=== PATIENT | female | born 1975 | race Caucasian/White ===

== ENCOUNTER 2021-08-18 14:15 | Inpatient (IN) ==
[2021-08-18 15:50] LABS: INR 0.9; PT Patient Result 10.3 SECS (10.5-12.0); Partial Thromboplastin Time 25.2 SECS (23.8-32.1)
[2021-08-18 16:04] LABS: Barbiturates Screen,Urine Negative (Negative); Benzodiazepines Screen,Urine Negative (Negative); Cannabinoid Screen,Urine Positive (Negative); Opiate Screen,Urine Negative (Negative); Phencyclidine Screen,Urine Negative (Negative)
[2021-08-18 16:06] LABS: Alanine Aminotransferase 23 U/L (13-56); Albumin 3.6 G/DL (3.4-5.0); Alkaline Phosphatase 79 U/L (45-117); Aspartate Amino Transferase 23 U/L (0-37); Basophils # 0.1 10*3/uL (0.0-0.2); Basophils % 0.8 % (0.0-0.8); Bilirubin,Total < 0.39 MG/DL (0.20-1.00); Blood Urea Nitrogen 12 MG/DL (7-18); Calcium 8.7 MG/DL (8.5-10.1); Carbon Dioxide 26 MMOL/L (21-32); Chloride 101 MMOL/L (98-107); Eosinophils # 0.2 10*3/uL (0.0-0.87); Eosinophils % 2.3 % (0.00-10.9); Glucose 130 MG/DL (74-106); Hematocrit 31.5 VOL% (35.7-47.0); Hemoglobin 8.6 GM/DL (12.0-16.0); Immature Granulocytes % 0.4 %; Immature Granulocytes Absolute 0.04 #; Lymphocytes # 3.6 10*3/uL (1.4-4.0); Lymphocytes % 35.2 % (21.3-54.2); Mean Corpuscular HGB Conc 27.3 GM/DL (32-36); Mean Corpuscular Volume 62.6 FL (87-102); Mean Platelet Volume 8.5 FL (9.6-12.0); Monocytes # 1.4 10*3/uL (0.11-0.8); Monocytes % 13.8 % (1.7-12.7); Neutrophils % 47.5 % (38.7-73.9); Platelet Count 517 T/CUMM (130-400); Potassium 3.6 MMOL/L (3.5-5.1); Red Blood Count 5.03 MC/CUMM (3.8-5.5); Red Cell Distribution Width 20.5 % (9.3-17.3); Sodium 136 MMOL/L (136-145); Total Protein 7.7 G/DL (6.4-8.2); White Blood Count 10.3 T/CUMM (4-12)
[2021-08-18] MEDS ORDERED: ACETAMINOPHEN 500 MG TABLET ONE (16:37)
[2021-08-18] MEDS ORDERED: ACETAMINOPHEN 500 MG TABLET PO STA (16:52)
[2021-08-18] MEDS ORDERED: hydrALAZINE 20 MG/1 ML VIAL IV PRN (17:08)
[2021-08-18] MEDS ORDERED: DEXTROSE 10% 25 GM/250 ML BAG IV PRN (17:08)
[2021-08-18] MEDS ORDERED: ALBUTEROL 2.5 MG/3 ML NEB RESP TX PRN (17:08)
[2021-08-18] MEDS ORDERED: ONDANSETRON 4 MG/2 ML VIAL IV PRN (17:08)
[2021-08-18] MEDS ORDERED: GLUCAGON 1 MG VIAL IM PRN (17:08)
[2021-08-18 17:11] LABS: Hypochromia 2+
[2021-08-18 17:12] LABS: Microcytosis 1+; Platelet Estimate Increased
[2021-08-18] MEDS: SODIUM CHLORIDE 0.9% 1,000 ML IV SCH (18:32)
[2021-08-18] MEDS: DOCUSATE SODIUM 100 MG CAPSULE PO SCH (21:57)
[2021-08-19] MEDS: SODIUM CHLORIDE 0.9% 1,000 ML IV SCH ×2 (03:31→10:37)
[2021-08-19 05:32] LABS: Basophils # 0.1 10*3/uL (0.0-0.2); Basophils % 0.7 % (0.0-0.8); Eosinophils # 0.2 10*3/uL (0.0-0.87); Eosinophils % 2.4 % (0.00-10.9); Hemoglobin 8.1 GM/DL (12.0-16.0); Immature Granulocytes % 0.2 %; Immature Granulocytes Absolute 0.02 #; Lymphocytes # 3.5 10*3/uL (1.4-4.0); Lymphocytes % 37.5 % (21.3-54.2); Mean Corpuscular HGB Conc 27.5 GM/DL (32-36); Mean Corpuscular Volume 63.4 FL (87-102); Mean Platelet Volume 8.7 FL (9.6-12.0); Monocytes # 1.3 10*3/uL (0.11-0.8); Monocytes % 13.4 % (1.7-12.7); Neutrophils % 45.8 % (38.7-73.9); Platelet Count 460 T/CUMM (130-400); Red Blood Count 4.65 MC/CUMM (3.8-5.5); Red Cell Distribution Width 19.9 % (9.3-17.3); White Blood Count 9.4 T/CUMM (4-12)
[2021-08-19 05:59] LABS: Hematocrit 29.5 VOL% (35.7-47.0)
[2021-08-19 06:01] LABS: Hypochromia 2+; Microcytosis 1+
[2021-08-19 06:02] LABS: Platelet Estimate Increased; Target Cells Slight
[2021-08-19 06:03] LABS: Ovalocytes Slight
[2021-08-19 06:11] LABS: Calcium 8.5 MG/DL (8.5-10.1); Osmolality,Calculated 274.8 MOS/KG (273-304); Potassium 3.2 MMOL/L (3.5-5.1); Risk Ratio 4.32; Thyroid Stimulating Hormone 1.24 uIU/ml (0.358-3.74); VLDL Cholesterol 26.8 MG/DL
[2021-08-19 07:16] LABS: % Iron Saturation 3.3 % (18-50)
[2021-08-19 08:52] VITALS: BP 138/83
[2021-08-19] MEDS ORDERED: NICOTINE 21 MG/24 HR PATCH TRANSDERM SCH (09:00)
[2021-08-19] MEDS ORDERED: ASPIRIN CHEW 81 MG TABLET PO SCH (09:00)
[2021-08-19] MEDS ORDERED: ROSUVASTATIN 20 MG TABLET PO SCH ×2 (09:00→21:00)
[2021-08-19] MEDS ORDERED: amLODIPine 10 MG TABLET PO SCH (09:00)
[2021-08-19] MEDS ORDERED: PHENYLEPHRINE DRIP 40 MG/250 ML PREMIX IV PRN (09:13)
[2021-08-19 09:25] LABS: INR 0.9; PT Patient Result 10.2 SECS (10.5-12.0); Partial Thromboplastin Time 21.7 SECS (23.8-32.1)
[2021-08-19 09:30] LABS: Basophils # 0.1 10*3/uL (0.0-0.2); Basophils % 0.6 % (0.0-0.8); Eosinophils # 0.2 10*3/uL (0.0-0.87); Eosinophils % 1.7 % (0.00-10.9); Immature Granulocytes % 0.2 %; Immature Granulocytes Absolute 0.02 #; Lymphocytes % 40.6 % (21.3-54.2); Mean Corpuscular HGB Conc 27.2 GM/DL (32-36); Mean Corpuscular Volume 63.1 FL (87-102); Mean Platelet Volume 8.7 FL (9.6-12.0); Monocytes # 1.5 10*3/uL (0.11-0.8); Monocytes % 14.9 % (1.7-12.7); Platelet Count 469 T/CUMM (130-400); Red Blood Count 4.66 MC/CUMM (3.8-5.5); Red Cell Distribution Width 20.2 % (9.3-17.3); White Blood Count 9.8 T/CUMM (4-12)
[2021-08-19 09:32] LABS: Hematocrit 29.4 VOL% (35.7-47.0)
[2021-08-19 09:34] LABS: Alanine Aminotransferase 20 U/L (13-56); Alkaline Phosphatase 69 U/L (45-117); Aspartate Amino Transferase 18 U/L (0-37); Bilirubin,Total < 0.39 MG/DL (0.20-1.00); Blood Urea Nitrogen 14 MG/DL (7-18); Calcium 8.2 MG/DL (8.5-10.1); Carbon Dioxide 27 MMOL/L (21-32); Chloride 105 MMOL/L (98-107); Glucose 107 MG/DL (74-106); Osmolality,Calculated 273.8 MOS/KG (273-304); Potassium 3.6 MMOL/L (3.5-5.1); Sodium 137 MMOL/L (136-145); Total Protein 7.4 G/DL (6.4-8.2)
[2021-08-19] MEDS ORDERED: NICOTINE 21 MG/24 HR PATCH TRANSDERM PRN (09:40)
[2021-08-19] MEDS: DOCUSATE SODIUM 100 MG CAPSULE PO SCH ×2 (10:18→20:32)
[2021-08-19] MEDS: PANTOPRAZOLE 40 MG TABLET PO SCH (10:19)
[2021-08-19 10:41] LABS: VLDL Cholesterol 27.2 MG/DL
[2021-08-19 10:52] LABS: Folate 7.9 NG/ML (5.38-24.0)
[2021-08-19 10:54] LABS: Risk Ratio 3.19
[2021-08-19] MEDS: ACETAMINOPHEN 325 MG TABLET PO PRN ×2 (14:45→20:33)
[2021-08-19] MEDS: ASPIRIN CHEW 81 MG TABLET PO SCH (17:04)
[2021-08-19 18:26] LABS: Bilirubin,Urine Negative (Negative); Blood, Urine Negative (Negative); Glucose,Urine (UA) Negative (Negative); Ketones,Urine Negative (Negative); Mucus,Urine Occasional /LPF (Occasional); Nitrite,Urine Negative (Negative); Protein,Urine Negative (Negative); RBC,Urine 2 /HPF (0-4); Squamous Epithelial Cell,Urine Occasional /HPF (0-10); Urine Appearance Clear (Clear); Urine Color Yellow (Yellow); Urine Specific Gravity 1.015 (1.001-1.035); Urine Urobilinogen 0.2 eU/dL (<2.0)
[2021-08-20 03:46] LABS: Basophils # 0.1 10*3/uL (0.0-0.2); Basophils % 1.1 % (0.0-0.8); Eosinophils # 0.3 10*3/uL (0.0-0.87); Eosinophils % 2.7 % (0.00-10.9); Hemoglobin 7.8 GM/DL (12.0-16.0); Immature Granulocytes % 0.2 %; Immature Granulocytes Absolute 0.02 #; Lymphocytes % 42.5 % (21.3-54.2); Mean Corpuscular HGB Conc 26.8 GM/DL (32-36); Mean Corpuscular Volume 64.2 FL (87-102); Mean Platelet Volume 8.8 FL (9.6-12.0); Monocytes # 1.2 10*3/uL (0.11-0.8); Neutrophils % 40.5 % (38.7-73.9); Platelet Count 430 T/CUMM (130-400); Red Blood Count 4.53 MC/CUMM (3.8-5.5); Red Cell Distribution Width 20.3 % (9.3-17.3); White Blood Count 9.4 T/CUMM (4-12)
[2021-08-20 03:53] LABS: Hematocrit 29.1 VOL% (35.7-47.0)
[2021-08-20 04:05] LABS: Calcium 8.3 MG/DL (8.5-10.1); Osmolality,Calculated 274.8 MOS/KG (273-304); Potassium 3.4 MMOL/L (3.5-5.1)
[2021-08-20 04:10] LABS: Ferritin 4.9 ng/mL (8-252)
[2021-08-20] MEDS: ASPIRIN CHEW 81 MG TABLET PO SCH (09:47)
[2021-08-20] MEDS: PANTOPRAZOLE 40 MG TABLET PO SCH (09:47)
[2021-08-20] MEDS: SODIUM CHLORIDE 0.9% 1,000 ML IV SCH (09:47)
[2021-08-20] MEDS: DOCUSATE SODIUM 100 MG CAPSULE PO SCH (09:47)
== END 2021-08-20 13:27 | disposition home health service (06) | DRG 65 ==
LOC: SUATTDRO → N.ED 14:15 → SUATTDRO 17:08 → INTOOBSV 17:08 → N.EDINP 17:08 → SUATTDRO 17:20 → N.5E 21:48 → N.CC 08-19 08:55
PROVIDERS: ADMIT Internal Medicine; ATTEND Internal Medicine